=== PATIENT | female | born 1950 | race Caucasian/White ===

== ENCOUNTER → 2019-12-12 13:29 | Outpatient (BNVA) | payer MEDICARE, SELFPAY | PROVIDERS: Family Provider Nurse Practitioner Family; PCP Nurse Practitioner Family; Visit Provider Nurse Practitioner Family | DX: N30.01 Acute cystitis with hematuria (principal); R30.0 Dysuria; R82.90 Unspecified abnormal findings in urine | CPT/HCPCS: 80053; 81000 ==

== ENCOUNTER → 2020-04-24 09:26 | Outpatient (BNVA) | payer MEDICARE, SELFPAY | PROVIDERS: Family Provider Nurse Practitioner Family; PCP Nurse Practitioner Family; Visit Provider Family Medicine | DX: Z20.828 Contact with and (suspected) exposure to other viral communicable diseases (principal) | CPT/HCPCS: 87635 ==

== ENCOUNTER → 2020-05-11 09:18 | Outpatient (BNVA) | payer MEDICARE, SELFPAY | PROVIDERS: Family Provider Nurse Practitioner Family; PCP Nurse Practitioner Family; Visit Provider Nurse Practitioner Family | DX: Z00.00 Encounter for general adult medical examination without abnormal findings (principal) | CPT/HCPCS: 36415; 80053; 80061; 85025 ==

== ENCOUNTER 2020-05-24 15:16 | Outpatient (CLI) | payer MEDICARE, SELFPAY ==
--- NOTE | 2020-05-24 15:32 | MM_ITS ---
WS: [id number] SCREENING DIGITAL MAMMOGRAM WITH CAD HISTORY: SCREEN COMPARISON: 03/11/2019 03/03/2018 Bilateral CC and MLO views submitted. Computer aided detection analyzed. Breast composition: There are scattered areas of fibroglandular density. No suspicious masses, microc alcifications or architectural distortion. MM/[place] [id number] IMPRESSION: BI-RADS: 1-Negative FOLLOW UP: 1 Year Follow-up
== END 2020-05-24 15:17 | disposition home or self-care (01) ==
LOC: RADSHAW 15:21
PROVIDERS: PCP Nurse Practitioner Family; Visit Provider Family Medicine
DX: Z12.31 Encounter for screening mammogram for malignant neoplasm of breast (principal)
CPT/HCPCS: 77067

== ENCOUNTER → 2020-09-25 09:16 | Outpatient (BNVA) | payer MEDICARE, SELFPAY | PROVIDERS: PCP Nurse Practitioner Family; Visit Provider Nurse Practitioner Family | DX: E78.5 Hyperlipidemia, unspecified (principal) | CPT/HCPCS: 80053; 80061 ==

== ENCOUNTER → 2020-10-17 09:13 | Outpatient (BNVA) | payer MEDICARE, SELFPAY | PROVIDERS: PCP Nurse Practitioner Family; Visit Provider Family Medicine | DX: M12.562 Traumatic arthropathy, left knee (principal) | CPT/HCPCS: 73562 ==

== ENCOUNTER 2021-10-13 08:27 | Emergency (ER) | payer MEDICARE, SELFPAY ==
[2021-10-13 08:47] VITALS: BP 166/79; PULSE 64; RESP 18; TEMP 36.8; O2SAT 95; BMI 34.3
--- NOTE | 2021-10-13 08:53 | ED_ITS ---
HPI - Female Genitourinary General: Chief complaint: Urogenital-Female Stated complaint: Trouble using the bathroom Time Seen by Provider: 10/13/21 08:46 Source: patient Mode of arrival: ambulatory Limitations: no limitations History of Present Illness: 71-year-old female presents to the ER today for dysuria and increased urgency x2 to 3 days. Patient reports she has been having some increased pain in her legs and was taking a significant amount of ibuprofen though she admits it was less than 800 mg 4 times daily. She reports after taking ibuprofen like this she started having urinary symptoms. Patient reports she had some chills yesterday but denies any fever. She denies any nausea or vomiting. She reports it is slightly better today after she increase her water intake yesterday. Patient reports it feels like a UTI however she has not had one in years and is unsure. Patient denies any blood in her urine. Review of Systems General: Reports: 10 or more systems reviewed and unremarkable except in HPI and below PFSH ED PFSH: Medical History History of nonmelanoma skin cancer Social History Alcohol intake: never Physical Exam Const: COMMON NORMALS: no acute distress, average body habitus, patient oriented x3, no limitations, healthy appearing, alert and well nourished Neck/C-Spine: COMMON NORMALS: full ROM and no lymphadenopathy Resp: COMMON NORMALS: normal respiratory effort, No retractions and clear to auscultation bilaterally AUSCULTATION: clear to auscultation bilaterally Cardio: COMMON NORMALS: regular rate and regular rhythm RATE: regular rate RHYTHM: regular rhythm GI: COMMON NORMALS: Normal to inspection, nondistended, normoactive bowel sounds present, Soft to palpation and non-tender PALPATION: Yes Soft to palpation : COMMON NORMALS: Yes no CVA tenderness BLADDER/KIDNEY EXAM: Yes no CVA tenderness OTHER: No suprapubic tenderness noted, no flank tenderness. Back/Pelvis: COMMON NORMALS: no CVA tenderness, no thoracic nor lumbar tenderness and thoraco-lumbar ROM normal Extremity: COMMON NORMALS: normal to inspection and full ROM Neuro: COMMON NORMALS: patient oriented x3 SENSORIUM/ORIENTATION: Yes alert Psych: COMMON NORMALS: mental status grossly normal, Normal thought process present and cooperative THOUGHT PROCESS: Normal thought process present Skin: COMMON NORMALS: no rashes or lesions noted GENERAL SKIN EXAM: no rashes or lesions noted Course ED course: 71-year-old female presents to the ER today for increased urinary urgency and dysuria x2 to 3 days. This started after patient started taking an increased amount of ibuprofen due to pain. She reports it was worse yesterday than today. She did force fluids yesterday and it does feel slightly improved today. She reports chills without fever. Denies any blood in her urine. We will get a UA in the ER today. Vital Signs: Vital signs: Vital Signs Temperature 98.2 F 10/13/21 08:47 Pulse Rate 64 10/13/21 08:47 Respiratory Rate 18 10/13/21 08:47 Blood Pressure 166/79 10/13/21 08:47 Pulse Oximetry 95 10/13/21 08:47 MDM - Female Medical Decision Making 71-year-old female presents to the ER today for increased urinary urgency and dysuria x2 to 3 days. This started after patient started taking an increased amount of ibuprofen due to pain. She reports it was worse yesterday than today. She did force fluids yesterday and it does feel slightly improved today. She reports chills without fever. Denies any blood in her urine. UA done in ER shows blood and leukocytes. We will go ahead and treat for UTI at this time. We will treat with Macrobid. Patient can continue taking Tylenol and Motrin for pain. Follow-up with PCP in 3 to 5 days. Return to the ER with new or worsening symptoms. Patient verbalized understanding and was in agreement with the treatment plan. Lab Data Laboratory Results Urine Color Yellow (Yellow) 10/13/21 09:10 Urine Appearance Sl hazy (CLEAR) 10/13/21 09:10 Urine pH 5 (5-7) 10/13/21 09:10 Ur Specific [place] 1.010 (1.005-1.030) 10/13/21 09:10 Urine Protein Neg (Negative) 10/13/21 09:10 Urine Glucose (UA) Norm (Normal) 10/13/21 09:10 Urine Ketones Negative (Negative) 10/13/21 09:10 Urine Blood 2+ (Negative) H 10/13/21 09:10 Urine Nitrate Negative (Negative) 10/13/21 09:10 Urine Bilirubin Neg (Negative) 10/13/21 09:10 Urine Urobilinogen Norm mg/dL (Negative) 10/13/21 09:10 Ur Leukocyte Esterase Trace (Negative) H 10/13/21 09:10 Urine RBC 0-4 /hpf (0-2) H 10/13/21 09:10 Urine WBC 15-25 /hpf (0-5) H 10/13/21 09:10 Ur Squamous Epith Cells 0-4 /hpf (0-5) H 10/13/21 09:10 Amorphous Sediment Not Reportable 10/13/21 09:10 Urine Bacteria 2+ /hpf (NONE) H 10/13/21 09:10 Critical Care Time Critical Care Time: Critical Care Time: No Discharge Plan Discharge Patient Disposition: Home Clinical Impression: Acute UTI Condition: Stable Prescriptions: New Macrobid 100 mg capsule 100 mg PO BID 5 Days Qty: 10 0RF Rx Instructions: must administer with a meal/food No Action ketoconazole 2 % cream 1 applic topical DAILY 14 Days Qty: 15 1RF lansoprazole 30 mg capsule,delayed release(DR/EC) 30 mg PO DAILY PRN (Reason: heartburn) Qty: 30 3RF Discharge Orders: Discharge ED (Routine); Ordered 10/13/21 Ordered By: Sharda Bear Referrals: Kate Escobedo NP [Primary Care Provider] - Discharge Diet: Usual diet Discharge Activity: Resume usual activity Patient Instructions: Opioid Safety Activity Restrictions/Additional Instructions: Push fluids. Take antibiotic as prescribed. Follow-up with PCP in 3 to 5 days if no improvement. Return to the ER with new or worsening symptoms. Coding Level of Care Code ED Sr Vice President for [employer] Fwd Exam Comprehensive
[2021-10-13 10:10] LABS: Add Urine Microscopic? YES; Bilirubin Urine Neg (Negative); Blood Urine 2+ (Negative); Glucose Urine UA Norm (Normal); Ketones Urine Negative (Negative); Leukocyte Esterase Urine Trace (Negative); Nitrate Urine Negative (Negative); Protein Urine Neg (Negative); Urine Appearance SL Hazy (CLEAR); Urine Color Yellow (Yellow); Urobilinogen Urine Norm (Negative); pH Urine 5 (5-7)
[2021-10-13 10:14] LABS: RBC Urine 0-4 /hpf (0-2); Squamous Epithelial Cell Urine 0-4 /hpf (0-5); WBC Urine 15-25 /hpf (0-5)
[2021-10-13 10:15] LABS: Add Urine Culture? Yes; Bacteria Urine 2+ /hpf
== END 2021-10-13 10:23 | disposition home or self-care (01) ==
PROVIDERS: Emergency Provider Physician Assistant; PCP Nurse Practitioner Family
DX: N39.0 Urinary tract infection, site not specified (principal)
CPT/HCPCS: 81001; 87077; 87086; 87186; 99283

== ENCOUNTER → 2022-05-07 16:14 | Outpatient (BNVA) | payer MEDICARE, SELFPAY | PROVIDERS: PCP Nurse Practitioner Family; Visit Provider Emergency Medicine | DX: R39.9 Unspecified symptoms and signs involving the genitourinary system (principal); N30.01 Acute cystitis with hematuria | CPT/HCPCS: 81000; 87086 ==

== ENCOUNTER 2022-09-06 20:49 | Emergency (ER) | payer OTHER, SELFPAY ==
[2022-09-06 20:51] VITALS: BP 167/97; PULSE 68; RESP 16; TEMP 36.7; O2SAT 96; BMI 35.0
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
== END 2022-09-07 00:04 | disposition home or self-care (01) ==
PROVIDERS: Emergency Provider Physician Assistant; PCP Nurse Practitioner Family
DX: Z04.1 Encounter for examination and observation following transport accident (principal); V89.2XXA Person injured in unspecified motor-vehicle accident, traffic, initial encounter
CPT/HCPCS: 71045; 99283

== ENCOUNTER → 2022-10-24 12:19 | Outpatient (BNVA) | payer MEDICARE, SELFPAY | PROVIDERS: PCP Nurse Practitioner Family; Visit Provider Nurse Practitioner Family | DX: R30.0 Dysuria (principal) | CPT/HCPCS: 81000 ==

== ENCOUNTER → 2022-12-17 11:01 | Outpatient (BNVA) | payer MEDICARE, SELFPAY | PROVIDERS: PCP Nurse Practitioner Family; Visit Provider Nurse Practitioner | DX: R39.9 Unspecified symptoms and signs involving the genitourinary system (principal); N30.01 Acute cystitis with hematuria | CPT/HCPCS: 81000; 87086 ==

== ENCOUNTER → 2023-02-23 11:53 | Outpatient (BNVA) | payer MEDICARE, SELFPAY | PROVIDERS: PCP Nurse Practitioner Family; Visit Provider Nurse Practitioner Family | DX: R39.9 Unspecified symptoms and signs involving the genitourinary system (principal) | CPT/HCPCS: 81000; 87086 ==

== ENCOUNTER → 2023-05-26 10:09 | Outpatient (BNVA) | payer MEDICARE, SELFPAY | PROVIDERS: PCP Nurse Practitioner Family; Visit Provider Family Medicine | DX: Z68.34 Body mass index [BMI] 34.0-34.9, adult (principal) | CPT/HCPCS: 80053; 85025 ==

== ENCOUNTER → 2023-06-04 09:48 | Outpatient (BNVA) | payer MEDICARE, SELFPAY | PROVIDERS: PCP Nurse Practitioner Family; Visit Provider Nurse Practitioner Family | DX: R39.9 Unspecified symptoms and signs involving the genitourinary system (principal); N30.01 Acute cystitis with hematuria | CPT/HCPCS: 81000; 87077; 87086; 87184 ==

== ENCOUNTER → 2023-06-11 09:51 | Outpatient (BNVA) | payer MEDICARE, SELFPAY | PROVIDERS: PCP Nurse Practitioner Family; Visit Provider Family Medicine | DX: N30.01 Acute cystitis with hematuria (principal) | CPT/HCPCS: 81000 ==

== ENCOUNTER 2023-11-06 00:31 | Emergency (ER) | payer OTHER, SELFPAY ==
[2023-11-06 00:41] VITALS: BP 175/99; PULSE 73; RESP 15; TEMP 37.2; O2SAT 94; BMI 33.6
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
[2023-11-06] MEDS: acetaminophen 500 mg Tablet 1000 MG PO (02:22)
[2023-11-06 03:25] VITALS: BP 132/88; PULSE 73; RESP 15; TEMP 37.2; O2SAT 94
[2023-11-06 03:35] LABS: Amphetamines Screen Urine Negative (Negative); Barbiturates Screen Urine Negative (Negative); Benzodiazepines Screen Urine Negative (Negative); Cocaine Screen Urine Negative (Negative); Opiate Screen Urine Negative (Negative); PCP Screen Urine Negative (Negative); THC Screen Urine Negative (Negative)
[2023-11-06 03:41] LABS: Alcohol Level < 10 mg/dL (0-10)
--- NOTE | 2023-11-06 18:33 | PC.NURSE ---
PATIENT CALL BACK DUE TO BRAIN BLEED ON CT READ. PATIENT ASKED TO PRESENT TO THE ER PER JACQUIE. PATIENT STATES THAT SHE WILL COME BACK WHEN SHE GETS OFF WORK.
== END 2023-11-06 03:27 | disposition home or self-care (01) ==
PROVIDERS: Emergency Provider Emergency Medicine; PCP Family Medicine
DX: S00.03XA Contusion of scalp, initial encounter (principal); Y04.2XXA Assault by strike against or bumped into by another person, initial encounter; Y92.199 Unspecified place in other specified residential institution as the place of occurrence of the external cause; Y99.0 Civilian activity done for income or pay
CPT/HCPCS: 70450; 73130; 80306; 80307; 99284

== ENCOUNTER 2023-11-06 19:45 | Outpatient (CLI) | payer OTHER, SELFPAY ==
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
== END 2023-11-06 19:46 | disposition home or self-care (01) ==
PROVIDERS: PCP Family Medicine; Visit Provider Emergency Medicine
DX: S09.8XXA Other specified injuries of head, initial encounter (principal); X58.XXXA Exposure to other specified factors, initial encounter; Y99.0 Civilian activity done for income or pay; G31.9 Degenerative disease of nervous system, unspecified; I67.82 Cerebral ischemia; G31.89 Other specified degenerative diseases of nervous system
CPT/HCPCS: 70450

== ENCOUNTER → 2024-07-05 09:39 | Outpatient (BNVA) | payer OTHER, SELFPAY | PROVIDERS: PCP Family Medicine; Visit Provider Family Medicine | DX: Z13.6 Encounter for screening for cardiovascular disorders (principal) | CPT/HCPCS: 80053; 80061; 85025 ==

== ENCOUNTER 2024-07-15 08:16 | Outpatient (CLI) | payer MEDICARE, SELFPAY ==
--- NOTE | 2024-07-15 08:20 | MM_ITS ---
WS: [id number] BILATERAL SCREENING DIGITAL TOMOSYNTHESIS MAMMOGRAM WITH CAD HISTORY: screening COMPARISON: 05/24/2020, 03/11/2019 Bilateral CC and MLO views with tomosynthesis and synthetic mammography submitted. Computer aided detection analyzed. Breast composition: There are scattered areas of fibroglandular density. No suspicious masses, microcalcifications or architectural distortion. Benign calcifications in each breast. MM/MM scr BI tomosynthesis [id number] IMPRESSION: BI-RADS: 2 - Benign. FOLLOW UP: 1 Year Follow-up
== END 2024-07-15 08:17 | disposition home or self-care (01) ==
LOC: RAD 08:17
PROVIDERS: PCP Family Medicine; Visit Provider Family Medicine
DX: Z12.31 Encounter for screening mammogram for malignant neoplasm of breast (principal); R92.323 Mammographic fibroglandular density, bilateral breasts; R92.1 Mammographic calcification found on diagnostic imaging of breast
CPT/HCPCS: 77063; 77067